=== PATIENT | female | born 1955 | race Caucasian/White ===

== ENCOUNTER → 2017-06-11 | Outpatient (CLI) | payer BC, SELFPAY | PROVIDERS: Family Provider Family Medicine; Visit Provider Orthopaedic Surgery | DX: M54.5 Low back pain (principal) | CPT/HCPCS: 72148; 76376 ==

== ENCOUNTER → 2019-05-13 09:47 | Outpatient (CLI) | payer BC, SELFPAY ==
--- NOTE | 2019-05-13 09:58 | XR_ITS ---
PROCEDURE: XR KNEE LT 4V CLINICAL INDICATION: knee pain Chronic knee pain COMPARISON: No exams were available for comparison FINDINGS: There are moderate osteoarthritic changes of the medial compartment with mild osteoarthritis of the patellofemoral joint and lateral compartment. Superior to the lateral tibial spine there is a separate bony fragment triangular-shaped in nature measuring 4 mm and could be due to an old fracture or a loose body. No acute fracture or dislocation. IMPRESSION: Moderate osteoarthritis with loose body versus old fracture of the lateral tibial spine Dictated by: Jasen Gupta MD 05/13/2019 15:12 Electronically signed by Jasen Gupta MD in [place] 05/13/2019 15:12
== END ==
PROVIDERS: PCP Family Medicine; Visit Provider Orthopaedic Surgery
DX: M25.562 Pain in left knee (principal)
CPT/HCPCS: 73564

== ENCOUNTER → 2021-03-16 16:58 | Outpatient (CLI) | payer OTHER, SELFPAY | PROVIDERS: PCP Family Medicine; Visit Provider Nurse Practitioner | DX: Z20.822 Contact with and (suspected) exposure to COVID-19 (principal); U07.1 COVID-19 | CPT/HCPCS: C9803; U0003; U0005 ==

== ENCOUNTER 2021-12-15 14:10 | Emergency (ER) | payer MEDICARE, SELFPAY ==
[2021-12-15 14:20] VITALS: BP 152/89; PULSE 85; RESP 18; TEMP 36.6; O2SAT 98; BMI 30.2
--- NOTE | 2021-12-15 14:35 | HMH.EDUTC ---
[facility] [place] Disposition Clinical Impression: Wrist pain, left Disposition: Home, Self-Care Condition on Discharge: Good Instructions: DI for Arthritis Additional Instructions: rest Ice with cold pack for 20 minutes remove may repeat for comfort every hour Yovany wrap for support and swelling remove every hour while awake and do rom exercises. Be sure not too tight but not to lose either Ibuprofen every 6 hours as needed for pain or inflammation. If needs something more you can take Tylenol every 4 hours as needed as long as her primary care has told he was okayed for you to take both. If improving any do not need to follow-up you can bring begin exercising 2-3 weeks after injury. Follow-up immediately if new or worsening symptoms or no noticeable improvement over the next 3-5 days. call ortho if no improvement watch glucose close while on steroids Prescriptions: predniSONE [Prednisone 20mg Tab] 20 mg PO BID #10 tab Transmission Status: Pending to [id number] Referrals: Kiersten Robbins MD [Primary Care Provider] - Time of Disposition: 14:40 Medical Decision Making - Geraldo Inquiry Pt receiving controlled substance: No Orders (Tests/Meds): ORDERS Category Date Time Status XR wrist LT min 3V Stat Exams 12/15/21 14:26 Stop Req [facility] [place] HPI - General Chief complaint: Urgent Treatment Center Stated complaint: left wrist pain, unknown origin Time Seen by Provider: 12/15/21 14:35 Mode of Arrival: Ambulatory Source of Information: Patient Limitations: No Limitations - History of Present Illness Provider Complaint: 66 yr old female presents for left wrist pain with limited rom due to pain for 3 days. pt states no injury. - Related Data Previous Rx's Medication Instructions Recorded predniSONE [Prednisone 20mg 20 mg PO BID #10 tab 12/15/21 Tab] Allergies Allergy/AdvReac Type Severity Reaction Status Date / Time No Known Allergies Allergy Unverified 06/10/17 14:24 [facility] History - Hepatitis A Screen Attestation statement:: This patient has been screened for Hepatitis A risk factors. I have reviewed the patient's past medical history: Yes ROS Obtained: Yes Systems reviewed as appropriate & no additional complaints - Constitutional Constitutional: Reports system reviewed and no additional complaints, except as docu, Denies fever(s) - Eyes Eyes: Reports system reviewed and no additional complaints, except as docu, Denies loss of vision - ENT Ears, Nose, Mouth, and Throat: Reports system reviewed and no additional complaints, except as docu, Denies sore throat - Cardiovascular Cardiovascular: Reports system reviewed and no additional complaints, except as docu, Denies chest pain - Respiratory Respiratory: Reports system reviewed and no additional complaints, except as docu, Denies change in phlegm color - Gastrointestinal Gastrointestingal: Reports: system reviewed and no additional complaints, except as docu. Denies: abdominal pain - Musculoskeletal Musculoskeletal: Reports system reviewed and no additional complaints, except as docu, Reports joint pain, Reports joint stiffness, Reports limited range of motion - Integumentary/Breasts Skin/Breast: Reports system reviewed and no additional complaints, except as docu, Denies rash - Neurologic Neurologic: Reports system reviewed and no additional complaints, except as docu, Denies dizziness - Endocrine Endocrine: Reports system reviewed and no additional complaints, except as docu, Denies fatigue - Hematologic/Lymphatic Henatologic/Lymphatic: Reports system reviewed and no additional complaints, except as docu, Denies lymphadenopathy - Allergic/Immunologic Allergic/Immunologic: Reports system reviewed and no additional complaints, except as docu, Denies itchy eyes Physical Exam - General General appearance: alert, in no apparent distress - Head Head exam: atraumatic, normocephalic, normal inspection - Eye Eye
[2021-12-15 14:37] VITALS: BP 152/89; PULSE 85; RESP 18; TEMP 36.6; O2SAT 98
== END 2021-12-15 14:50 | disposition home or self-care (01) ==
PROVIDERS: Emergency Provider Nurse Practitioner Family; PCP Family Medicine
DX: M25.532 Pain in left wrist (principal)
CPT/HCPCS: 99212; G0463

== ENCOUNTER → 2022-03-15 11:59 | Outpatient (CLI) | payer MEDICARE, OTHER, SELFPAY ==
--- NOTE | 2022-03-15 12:08 | XR_ITS ---
FINAL REPORT CLINICAL HISTORY: ACUTE LEFT SIDED LOW BACK PAIN WITHOUT SCIATICA FINDINGS: 4 views were obtained. There is no acute fracture. There is no malalignment. There is moderate disc space narrowing at L2-L3, L3-L4, and L4-L5. There is vacuum disc phenomenon at L4-L5. 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 Reviewed, Interpreted and Dictated by Jone Wheately MD Transcribed by Fito Guadarrama Authenticated and [facility]
== END ==
PROVIDERS: PCP Family Medicine; Visit Provider Nurse Practitioner Family
DX: M54.50 Low back pain, unspecified (principal)
CPT/HCPCS: 72110

== ENCOUNTER 2022-09-22 13:03 | Emergency (ER) | payer MEDICARE, OTHER, SELFPAY ==
[2022-09-22 13:30] VITALS: BP 165/92; PULSE 93; RESP 18; TEMP 37; O2SAT 96; BMI 27.9
--- NOTE | 2022-09-22 14:03 | EXP.UTC ---
Discharge Plan Disposition Patient Disposition: Home, Self-Care Condition: Good Prescriptions Prescriptions: New amoxicillin-pot clavulanate 875-125 mg Tablet 1 tab PO Q12H 7 Days Qty: 14 0RF fluconazole [Diflucan] 150 mg tablet 150 mg PO Q3D Qty: 2 0RF Rx Instructions: Take one now and wait 3 days (72 hrs ) and may repeat if still having symptoms No Action prednisone 20 MG tablet 20 mg PO BID Qty: 10 0RF Referrals Follow up/Referrals: Kiersten Robbins MD [Primary Care Provider] - See instructions Activity Restrictions/Add. Instructions Additional Instructions/Restrictions: Take medication as prescribed Make sure to follow up with Dentist as soon as possible Return if needed Straight to ER if any life threatening symptoms Clinical Impressions Clinical Impression: Dental infection Instructions Patient Instructions: Amoxicillin and Clavulanic Acid Discharge ED Provider: Yareli Alicea [facility] General Stated complaint: sore throat Mode of Arrival: Ambulatory Source of Information: Patient Limitations: No Limitations Time Seen by Provider: 09/22/22 14:03 Description of Symptoms (Recalled from Triage Doc. by RN): PATIENT C/O SWOLLEN GLAND TO LEFT SIDE OF NECK HEENT Symptoms (Recalled from RN notes): Yes Resp Symptoms (Recalled from RN notes): No Skin Symptoms (Recalled from RN notes): No MS Symptoms (Recalled from RN notes): No Functional Status (Recalled from RN notes): WNL History of Present Illness Provider Complaint: Patient states that she broke a tooth a few days ago and she noticed this morning that she had a swollen lymph node States that her dentist is out and she is worried about it starting to abscess and she has to be premedicated prior to dental work so she wanted to come in and get something to help Related Data Previous Rx's Medication Instructions Recorded prednisone 20 mg tablet 20 mg PO BID #10 tabs 12/15/21 amoxicillin 875 mg-potassium 1 tab PO Q12H 7 days #14 tabs 09/22/22 clavulanate 125 mg tablet fluconazole 150 mg tablet 150 mg PO Q3D 2 doses #2 tabs 09/22/22 (Diflucan) Allergies Allergy/AdvReac Type Severity Reaction Status Date / Time No Known Allergies Allergy Verified 12/15/21 14:36 Worker's Comp Is this a Worker's Comp case?: No [facility] Disclaimer: The information contained in this section may have been updated after the patient was seen, as this information can be updated by other users. Social History Smoking Status: Unknown if ever smoked alcohol intake: never current occupational status: unemployed Travel in the last 8 weeks: None ROS Obtained: Yes All systems reviewed & no additional complaints except as documented and Yes Systems reviewed as appropriate & no additional complaints except as documented Constitutional Constitutional: Reports system reviewed and no additional complaints, except as documented and Reports as per HPI ENT Ears, Nose, Mouth, and Throat: Reports system reviewed and no additional complaints, except as documented, Reports as per HPI and Reports dental pain (broken tooth on left upper back) Cardiovascular Cardiovascular: Reports system reviewed and no additional complaints, except as documented and Reports as per HPI Physical Exam General General appearance: alert and in no apparent distress Expanded ENT Exam Teeth exam: Present fractured tooth # (left upper back tooth ) and gingival swelling Comment: small swollen lymph node noted under left jaw line Respiratory Respiratory exam: Present normal lung sounds bilaterally; Absent respiratory distress or wheezes Cardiovascular Cardiovascular exam: Present regular rate, normal rhythm and normal heart sounds Neurological Exam Neurological exam: Present alert, oriented X3 and normal gait Medical Decision Making Geraldo Inquiry Pt receiving controlled substance: No Geraldo was queried for this patient: No Vital Signs: 09/22/22 13:30 Temperatur
[2022-09-22 14:18] VITALS: BP 165/92; PULSE 93; RESP 18; TEMP 37; O2SAT 96
== END 2022-09-22 14:28 | disposition home or self-care (01) ==
PROVIDERS: Emergency Provider Nurse Practitioner; PCP Family Medicine
DX: R22.0 Localized swelling, mass and lump, head (principal); R59.0 Localized enlarged lymph nodes; R68.84 Jaw pain
CPT/HCPCS: 99212; 99214; G0463

== ENCOUNTER 2024-02-11 08:10 | Outpatient (CLI) | payer MEDICARE, OTHER, SELFPAY ==
--- NOTE | 2024-02-11 08:24 | MM_ITS ---
PROCEDURE INFORMATION: Exam: MG Right Screening 3D Mammography Exam date and time: 02/11/2024 8:24 AM Age: 68 years old Clinical indication: Screening examination, personal history of left mastectomy. TECHNIQUE: Imaging protocol: Right Screening tomosynthesis and 2D mammography including computer-aided detection (CAD) when performed. COMPARISON: 1. MG DMSUR DIG MAMM SCREENING UNILAT-RT 12/06/2010 10:11 AM 2. MG DIGMAMMS MAMMOGRAM SCREEN-APPARATUS LINEMAN N/C 07/02/2007 10:49 AM FINDINGS: MAMMOGRAPHY: Breast composition: The breasts are almost entirely fatty. Mass: None. Architectural distortion: None. Calcifications: No suspicious calcifications. Asymmetric density: None. Skin thickening: None. Axillary adenopathy: None. IMPRESSION: No mammographic evidence of malignancy. Annual screening is recommended unless otherwise clinically indicated. ASSESSMENT: BI-RADS Category 1: Negative
--- NOTE | 2024-02-11 08:24 | XR_ITS ---
FINAL REPORT TECHNIQUE: Bone densitometry calculations of the lumbar spine and left hip were obtained. CLINICAL HISTORY: SCREENING COMPARISON: None FINDINGS: Using L1-4, the bone mineral density of the spine is 1.089 g/cm2, corresponding to T-score of 0.4. Using the left hip, the bone mineral density of the femoral neck is 0.595 g/cm2, corresponding to a T-score of -2.3. NOTE: T-score: Standard deviation compared with peak bone mass of young adult mean. *Following the recommendations of the International Society of Bone densitometry, classification of hip BMD is based on the lower of two T-scores; total hip or femoral neck. IMPRESSION: Diminished bone mineral density of the left hip consistent with osteopenia. Normal bone mineral density of the lumbar spine. Reviewed, Interpreted and Dictated by Jone Wheatley MD Transcribed by Tamar Mcconnell Authenticated and [facility]
== END 2024-02-11 23:59 | disposition home or self-care (01) ==
LOC: RAD 08:11
PROVIDERS: PCP Nurse Practitioner; Visit Provider Nurse Practitioner
DX: Z12.31 Encounter for screening mammogram for malignant neoplasm of breast (principal); M81.0 Age-related osteoporosis without current pathological fracture
CPT/HCPCS: 77063; 77067; 77080